=== PATIENT | female | born 1995 | race Caucasian/White ===

== ENCOUNTER 2023-05-05 10:16 | Outpatient (CLI) | payer BC ==
[2023-05-05 12:15] VITALS: BP 141/95; PULSE 94; RESP 16; TEMP 97.2
--- NOTE | 2023-05-10 11:11 | P.MSEPDOC ---
Presenting Problems - Arrival Data Date of Arrival on Unit: 05/05/23 Time of Arrival on Unit: 11:35 Mode of Transport: Ambulatory - Complaint OB-Reason for Admission/Chief Complaint: Rule Out SROM Comment: neg amnisure . unable to check cervix. Medical History - Information : 1 Para: 0 Term: 0 : 0 Abortions: Spontaneous or Elective: 0 Number of Living Children: 0 - Gestational Age Gestational Age by JANICE (wks/days): 38 Weeks and 5 Days Review of Systems - Review of Systems Constitutional: No problems Breast: No problems ENT: No problems Cardiovascular: No problems Respiratory: No problems Gastrointestinal: No problems Genitourinary: No problems Musculoskeletal: No problems Neurological: No problems Skin: No problems Comment: elective c/s for friday. seeing dr singh in office tomorrow Vital Signs - Temperature Temperature: 97.2 F Temperature Source: Temporal Artery Scan - Pulse Apical Pulse Rate: 94 Pulse Assessment Method: Auscultation - Respirations Respiratory Rate: 16 Oxygen Delivery Method: Room Air O2 Sat by Pulse Oximetry: 98 - Blood Pressure Right Arm Blood Pressure: 141/95 Blood Pressure Mean: 110 Blood Pressure Source: Automatic Cuff Medical Screen Scoring - Cervical Exam Membranes: Intact - Uterine Contractions Intensity: Mild Resting: Soft to palpation - Assessment - Baby A Baseline FHR: 140 Heart Rate - NICHD Category: Category I (Normal) Physician Notification - Physician Notified Physician Notified Date: 05/05/23 Physician Notified Time: 11:35 Physician: Bayron Melo Order Received: Yes (home with instructions) Maternal Triage Index - Scheduled/Requesting Priority 5 Scheduled/Requesting Priority 5: Yes Criteria Met for Priority 5: ? srom at 0800. not leaking now. scheduled elective c/s on friday. Disposition - Disposition OB Disposition: Triage, Discharge to home, Written follow up instructions reviewed Discharge Date: 05/05/23 Discharge Time: 11:40 I agree with the RN Medical Screening Exam: Yes Physician's MSE Comment: I have neither seen nor examined the patient. Case reviewed; plan agreed upon as documented in EMR&OBIX.: Yes Diagnosis: RELATED CONDITIONS, UNSPECIFIED, THIRD TRIMESTER
== END 2023-05-05 11:45 | disposition home or self-care (01) ==
LOC: FBPOP 10:16
PROVIDERS: ATTEND Obstetrics & Gynecology
DX: O47.1 False labor at or after 37 completed weeks of gestation (principal); Z3A.38 38 weeks gestation of pregnancy
CPT/HCPCS: 59025; 84112; 99213

== ENCOUNTER 2023-05-06 16:15 | Inpatient (IN) | payer BC ==
[2023-05-06] MEDS ORDERED: TRANEXAMIC 1,000 MG/100ML-NACL 1,000 MG in EMPTY BAG 1 BAG IV PRN (17:00)
[2023-05-06] MEDS ORDERED: OXYTOCIN 30 UNITS/500 ML NS 30 UNIT in SALINE 1 500ML.BAG IV SCH (17:00)
[2023-05-06] MEDS ORDERED: OXYTOCIN 10 UNIT/ML 1 ML VIAL IM PRN (17:00)
[2023-05-06] MEDS ORDERED: miSOPROStoL 200 MCG TAB PO PRN (17:00)
[2023-05-06] MEDS ORDERED: METHYLERGONOVINE 0.2 MG/ML 1 ML AMP IM PRN (17:00)
[2023-05-06] MEDS ORDERED: CARBOPROST TROMETHAMINE 250 MCG/ML 1 ML AMP IM PRN (17:00)
[2023-05-06] MEDS: LACTATED RINGERS 1,000 ML IV SCH (17:15)
[2023-05-06] MEDS: CITRIC ACID-SODIUM CITRATE 15 ML CUP PO ONE (17:29)
[2023-05-06 17:42] LABS: Basophils # (A) 0.1 k/uL (0-0.2); Basophils % (A) 0 %; Eosinophils # (A) 0.1 k/uL (0-0.7); Eosinophils % (A) 1 %; HCT 37.9 % (34.0-46.0); HGB 12.5 gm/dL (11.4-16.0); Lymphocytes # (A) 2.1 k/uL (1.0-4.8); Lymphocytes % (A) 12 %; MCH 28.3 pg (25.0-35.0); MCHC 33.1 g/dL (31.0-37.0); MCV 85.6 fL (80.0-100.0); Mean Platelet Volume 8.2; Monocytes # (A) 1.1 k/uL (0-1.0); Monocytes % (A) 6 %; Neutrophils # (A) 14.2 k/uL (1.3-7.7); Neutrophils % (A) 79 %; Platelet Count 297 k/uL (150-450); RBC 4.43 m/uL (3.80-5.40); RDW 13.9 % (11.5-15.5); WBC 17.9 k/uL (3.8-10.6)
--- NOTE | 2023-05-06 19:00 | P.OP ---
Date of Procedure: 05/06/23 Preoperative Diagnosis: IUP at 38 and 6/7 weeks, labor, intolerance to vaginal exams requesting primary Postoperative Diagnosis: Same plus meconium stained fluid Procedure(s) Performed: Primary low-transverse section Anesthesia: spinal Surgeon: Debra Handley Chili Powder Mixer #1: Geovanna Joiner Estimated Blood Loss (ml): 633 IV fluids (ml): 12 Urine output (ml): 500 (Clear yellow) Pathology: none sent Condition: stable Disposition: observation Indications for Procedure: 27-year-old G1, P0 at 38-6/7 weeks presented to the office for routine visit. Patient states she was noting loss of fluid yesterday was seen in OB triage and had a negative workup. Patient states she continued to have some leakage overnight and started pj once at her appointment this afternoon . Patient states contractions are about 5 minutes apart and getting more uncomfortable. Patient has requested primary secondary to inability to tolerate vaginal exams. This was discussed in detail with patient and all questions are answered. Patient is continuing to request a primary secondary to anxiety about and inability to tolerate vaginal exams Operative Findings: Viable male infant delivered at 1831, weight of 8 pounds 4 ounces, Apgars of 8 and 9 at 1 and 5 minutes respectively meconium stained fluid was appreciated. Description of Procedure: The patient was prepped and draped in the usual fashion after spinal anesthesia was administered by Dr. Hinton. A Pfannenstiel incision was made and extended of the abdominal cavity without difficulty. The bladder peritoneum was elevated and incised and reflected distally. A 2 cm incision was made in the transverse plane of the lower uterine segment to enter the uterus at which time clear fluid was noted. The incision was extended in both directions using the bandage scissors. The head was encountered within the field and delivered up and through the incision where the nose and mouth were thoroughly suctioned. Remainder of the was delivered onto the surgical field where the cord was doubly clamped, cut, and the was passed for resuscitative measures with weight and Apgars as noted above. The placenta was delivered manually, (meconium stained membranes were appreciated) intact, and was grossly normal with a grossly normal three-vessel cord. The uterus was exteriorized and the interior cavity of the uterus swept of any remaining placental and membranous fragments with a laparotomy sponge. The margins of the incision were grasped with Laboy clamps and the incision closed in 2 layers. First layer was a running locking layer of 0 Vicryl from margin to margin followed by a second layer of imbricating 0 Vicryl from margin to margin. Any small points of bleeding were then made hemostatic with the Bovie. Once hemostasis was achieved, the posterior cul-de-sac was suctioned with a guard and the uterine and ovarian findings are as noted above. The uterus was replaced within the abdominal cavity and the gutters swept of any remaining blood fluid or clot. The incision was again reexamined and hemostasis was noted to be excellent. Any small point of bleeding were made hemostatic with the Bovie. Once hemostasis was achieved the parietal peritoneum was loosely reapproximated. The layer of muscles were examined and made hemostatic with the Bovie. Attention was then turned to the fascia which was closed with 2 running stitches of 0 Vicryl proceeding from the lateral margins to the midpoint. The subcutaneous tissues were irrigated, made hemostatic with the Bovie, and reapproximated with a running stitch of 30 vicryl. The skin was reapproximated with 4-0 Vicryl. Estimated blood loss for the case was approximately 633 mL. All sponge instrument and needle counts are correct. There were no complications. The patient tolerated the procedure well and proceeded to the recovery room in stable condition. Both mother and infant are resting comfortably in recovery.
[2023-05-06] MEDS ORDERED: ONDANSETRON 4 MG/2 ML VIAL IVP PRN (19:04)
[2023-05-06] MEDS ORDERED: NALOXONE 0.4 MG/ML 1 ML VIAL IV PRN (19:04)
[2023-05-06] MEDS ORDERED: diphenhydrAMINE 50 MG CAP PO PRN (19:04)
[2023-05-06] MEDS ORDERED: ZOLPIDEM 5 MG TAB PO PRN (19:04)
[2023-05-06] MEDS ORDERED: METOCLOPRAMIDE 5 MG/ML 2 ML VIAL IVP PRN (19:04)
[2023-05-06] MEDS ORDERED: diphenhydrAMINE 50 MG/ML 1 ML VIAL IVP PRN (19:04)
[2023-05-06] MEDS: ACETAMINOPHEN IV (For NPO) 1,000 MG in EMPTY BAG 1 BAG IVPB SCH (21:42)
[2023-05-06] MEDS: SENNOSIDES-DOCUSATE SODIUM 1 EACH TAB PO SCH (21:43)
[2023-05-06] MEDS: diphenhydrAMINE 50 MG/ML 1 ML VIAL IVP PRN (23:50)
[2023-05-07] MEDS: ACETAMINOPHEN TAB 500 MG TAB PO SCH (01:04)
[2023-05-07] MEDS: LACTATED RINGERS 1,000 ML IV SCH (01:04)
[2023-05-07] MEDS: IBUPROFEN 600 MG TAB PO SCH (02:58)
[2023-05-07] MEDS: IBUPROFEN IV 800 MG in SODIUM CHLORIDE 0.9% 250 ML IV SCH (03:31)
--- NOTE | 2023-05-07 07:57 | P.PN ---
Progress Note - Text 05/07/23 640am 28-year-old female status post with spinal Duramorph. Patient seen and evaluated for postop pain control, she has a VAS of 0 with no complaint of nausea vomiting or pruritus. Patient is doing well
[2023-05-07 08:02] LABS: Basophils # (A) 0.1 k/uL (0-0.2); Basophils % (A) 0 %; Eosinophils # (A) 0.1 k/uL (0-0.7); Eosinophils % (A) 1 %; HCT 34.8 % (34.0-46.0); HGB 11.6 gm/dL (11.4-16.0); Lymphocytes # (A) 1.5 k/uL (1.0-4.8); Lymphocytes % (A) 11 %; MCH 28.6 pg (25.0-35.0); MCHC 33.5 g/dL (31.0-37.0); MCV 85.5 fL (80.0-100.0); Mean Platelet Volume 7.9; Monocytes # (A) 0.7 k/uL (0-1.0); Monocytes % (A) 5 %; Neutrophils # (A) 11.2 k/uL (1.3-7.7); Neutrophils % (A) 81 %; Platelet Count 227 k/uL (150-450); RBC 4.07 m/uL (3.80-5.40); WBC 13.8 k/uL (3.8-10.6)
[2023-05-07] MEDS: diphenhydrAMINE 25 MG CAP PO PRN (08:39)
--- NOTE | 2023-05-07 08:39 | P.PNOBGPC ---
Subjective - Subjective Principal diagnosis: Postop day 1 Interval history: Patient is doing well postoperatively. She is ambulating without difficulty, awaiting spontaneous void. She is tolerating a regular diet without nausea or vomiting. She states her pain is well-controlled. She is bottlefeeding Patient reports: Reports appetite normal, Reports voiding normally : doing well, bottle feeding Objective - Vital Signs Latest vital signs: Vital Signs Temp Pulse Resp BP Pulse Ox 05/07/23 03:28 98 F 66 18 137/76 99 05/06/23 23:05 98.2 F 80 16 119/70 05/06/23 21:05 98.5 F 83 16 113/75 05/06/23 20:50 80 16 118/72 05/06/23 20:35 97.1 F L 80 16 117/77 05/06/23 20:20 88 16 118/80 05/06/23 20:05 98.2 F 84 16 109/79 05/06/23 19:50 98.1 F 81 16 118/65 05/06/23 19:35 80 16 114/65 05/06/23 19:20 97.8 F 79 16 108/80 05/06/23 19:05 97.0 F L 80 16 106/58 99 05/06/23 17:00 97.1 F L 78 16 134/78 100 Intake and Output 05/06/23 05/07/23 05/07/23 22:59 06:59 14:59 Intake Total 300 Output Total 1260 900 Balance -960 -900 Intake: Oral 300 Output: Urine 600 900 Uretheral (Jensen) 600 Output, Quantitative 660 Blood Loss Other: Weight 108.862 kg - Exam Extremities: Present: normal, edema Abdomen: Present: normal appearance, soft Incision: Present: normal, dry Uterus: Present: normal, firm - Labs Labs: Abnormal Lab Results - Last 24 Hours (Table) 05/06/23 05/07/23 Range/Units 17:10 07:36 WBC 17.9 H 13.8 H (3.8-10.6) k/uL Neutrophils # 14.2 H 11.2 H (1.3-7.7) k/uL Monocytes # 1.1 H (0-1.0) k/uL Assessment and Plan (1) Term Current Visit: Yes Status: Acute Code(s): Z34.90 - ENCNTR FOR SUPRVSN OF NORMAL , UNSP, UNSP TRIMESTER SNOMED Code(s): 86826738 (2) Thin meconium stained amniotic fluid Current Visit: Yes Status: Acute Code(s): P96.83 - MECONIUM STAINING SNOMED Code(s): 135156437 (3) Status post primary low transverse section Current Visit: Yes Status: Acute Code(s): Z98.891 - HISTORY OF UTERINE SCAR FROM PREVIOUS SURGERY SNOMED Code(s): 074947428 (4) Generalized anxiety disorder Current Visit: Yes Status: Acute Code(s): F41.1 - GENERALIZED ANXIETY DISORDER SNOMED Code(s): 81950472 Plan: 28-year-old G1 now P1 s/p primary for intolerance to vaginal exams, extreme anxiety. Patient underwent primary 6 without difficulty. Patient is doing well this morning. Will encourage increased ambulation. Awaiting spontaneous void. Continue routine postoperative care.
[2023-05-07] MEDS: SERTRALINE 100 MG TAB PO SCH (08:41)
[2023-05-07] MEDS: DIPH,PERTUS(ACELL)TETVAC-LF 0.5 ML VIAL IM ONE (18:28)
[2023-05-07] MEDS: MEASLES-MUMPS-RUBELLA VACC/PF 12,500 UNIT/0.5 ML VIAL SQ ONE (18:31)
--- NOTE | 2023-05-08 12:59 | P.PNOBGPC ---
Subjective - Subjective Principal diagnosis: Postop day 2, primary Interval history: Patient is doing well postoperatively. She is ambulating and voiding without difficulty. Infant remains in the nursery on IV antibiotics. Lochia is minimal. She is bottlefeeding Patient reports: Reports appetite normal, Reports voiding normally, Reports pain well controlled, Reports ambulating normally Sargeant: doing well, bottle feeding Objective - Vital Signs Latest vital signs: Vital Signs Temp Pulse Resp BP Pulse Ox 05/08/23 07:30 97.7 F 71 16 123/77 100 05/08/23 00:00 98.6 F 67 18 120/75 100 05/07/23 16:00 97.8 F 72 16 116/68 96 Intake and Output 05/07/23 05/08/23 05/08/23 22:59 06:59 14:59 Intake Total 600 Output Total 600 Balance 0 Intake: Oral 600 Output: Urine 600 Other: Voiding Method Toilet # Voids 1 - Exam Extremities: Present: normal, edema Abdomen: Present: normal appearance, soft Incision: Present: normal, dry, intact Uterus: Present: normal, firm Assessment and Plan (1) Term Current Visit: Yes Status: Acute Code(s): Z34.90 - ENCNTR FOR SUPRVSN OF NORMAL , UNSP, UNSP TRIMESTER SNOMED Code(s): 72004411 (2) Thin meconium stained amniotic fluid Current Visit: Yes Status: Acute Code(s): P96.83 - MECONIUM STAINING SNOMED Code(s): 516906346 (3) Status post primary low transverse section Current Visit: Yes Status: Acute Code(s): Z98.891 - HISTORY OF UTERINE SCAR FROM PREVIOUS SURGERY SNOMED Code(s): 766405682 (4) Generalized anxiety disorder Current Visit: Yes Status: Acute Code(s): F41.1 - GENERALIZED ANXIETY DISORDER SNOMED Code(s): 96925895 Plan: Patient is doing well postoperatively will continue postoperative care.
[2023-05-09 09:25] VITALS: BP 136/82; PULSE 85; RESP 16; TEMP 97.5
--- NOTE | 2023-05-09 09:47 | P.DS ---
Providers Date of admission: 05/06/23 16:15 Expected date of discharge: 05/09/23 Attending physician: Debra Handley Primary care physician: Stated None - Discharge Diagnosis(es) (1) Term Current Visit: Yes Status: Acute (2) Thin meconium stained amniotic fluid Current Visit: Yes Status: Acute (3) Status post primary low transverse section Current Visit: Yes Status: Acute (4) Generalized anxiety disorder Current Visit: Yes Status: Acute Hospital Course: This is a 28-year-old G1 now P1 that presented to the office for routine visit at 38-6/7 weeks. Patient was noted to be uncomfortable with contractions. Patient states she had loss of fluid yesterday was seen in OB triage with a negative AmniSure. Patient noted continued leakage overnight and presented to her routine visit. Patient was uncomfortable with contractions that were noted to be about 5 minutes apart. Patient was getting more uncomfortable and was instructed to present to OB triage. Patient in addition had requested primary secondary to increasing anxiety and inability to tolerate vaginal exams. This was discussed in detail throughout the with patient and her significant other. Patient continuing to request primary , therefore she was admitted and primary was performed. For full details on the please see the operative report. Patient delivered a viable male at 1831, weight of 8 pounds 4 ounces, Apgars of 8 and 9 at 1 and 5 minutes respectively. Meconium stained fluid was appreciated. Patient's postoperative course has been uneventful. In this postoperative day #3 she is ambulating and voiding without difficulty. She is tolerating a regular diet without nausea or vomiting. She states her pain is well- controlled. Infant is awaiting a blood culture result at 1700 and if negative will be discharged home. Patient Condition at Discharge: Good Plan - Discharge Summary New Discharge Prescriptions: No Action Vit No.179/Iron/Folic [ Tablet] 1 tab PO DAILY Iron/Folate 9/Vit C/D3/B6/B12 [Nufera Tablet] 1 each PO DAILY Sertraline [Zoloft] 100 mg PO DAILY Discharge Medication List Iron/Folate 9/Vit C/D3/B6/B12 [Nufera Tablet] 1 each PO DAILY 05/05/23 [History] Vit No.179/Iron/Folic [ Tablet] 1 tab PO DAILY 05/05/23 [History] Sertraline [Zoloft] 100 mg PO DAILY 05/05/23 [History] Follow up Appointment(s)/Referral(s): Debra Handley DO [Doctor of Osteopathic Medicine] - 2 Weeks Patient Instructions/Handouts: (DC), (GEN) Activity/Diet/Wound Care/Special Instructions: No tub baths or intercourse until 6 weeks postop. Gzri-lox-zekosjh ibuprofen 600 mg or 3 tablets every 6 hours as needed for pain. Patient is to call the office to make a routine postop appointment in 2 weeks. Discharge Disposition: HOME SELF-CARE
[2023-05-09] MEDS: SIMETHICONE 80 MG CHEWABLE PO PRN (10:53)
--- NOTE | 2023-05-13 07:54 | P.HPOB ---
History of Present Illness H&P Date: 05/06/23 Chief Complaint: IUP at 38-6/7 weeks, labor This is a 27-year-old 1 para 0 at 38-6/7 weeks that presents to labor and delivery from the office with noted regular painful contractions. Patient states she believes her water may have broken yesterday she was seen in triage with a negative AmniSure. Patient states she continues to notice some leakage and on exam blood-tinged mucousy fluid was appreciated in the office today. Patient notes good movement. Patient states contractions about every 5 minutes. Patient is uncomfortable with contractions. Patient is intolerant of vaginal exams and struggles with severe anxiety and has requested primary . Patient last ate at 10 AM. care has been essentially uncomplicated blood work notes a blood type of O pos. Review of Systems Constitutional: Denies chills, Denies fatigue, Denies fever Ears, nose, mouth and throat: Denies headache Cardiovascular: Reports leg edema Respiratory: Denies dyspnea Gastrointestinal: Denies nausea, Denies vomiting Genitourinary: Reports Past Medical History History of Any Multi-Drug Resistant Organisms: None Reported Smoking Status: Never smoker Medications and Allergies Home Medications Medication Instructions Recorded Confirmed Type Iron/Folate 9/Vit C/D3/B6/B12 1 each PO DAILY 05/05/23 05/05/23 History [Nufera Tablet] Vit No.179/Iron/Folic 1 tab PO DAILY 05/05/23 05/05/23 History [ Tablet] Sertraline [Zoloft] 100 mg PO DAILY 05/05/23 05/05/23 History Allergies Allergy/AdvReac Type Severity Reaction Status Date / Time No Known Allergies Allergy Verified 05/05/23 11:13 Exam Osteopathic Statement: *. No significant issues noted on an osteopathic structural exam other than those noted in the History and Physical/Consult. Targeted physical exam is performed this date General this is a well-nourished well-developed female in no acute distress, breathing is nonlabored, heart has a regular rate and rhythm, abdomen is gravid, on vaginal exam I am not able to check her cervix secondary to discomfort but feels in vertex presenta tion, pink-tinged mucus fluid is appreciated on my glove after attempted exam. heart tones here on labor and delivery are noted to be category 2 moderate variability is appreciated and she is pj every 3 minutes. Results Result Diagrams: 05/06/23 17:10 Assessment and Plan (1) Term Current Visit: Yes Status: Acute Code(s): Z34.90 - ENCNTR FOR SUPRVSN OF NORMAL , UNSP, UNSP TRIMESTER SNOMED Code(s): 06368936 Plan: 27-year-old G1, P0 at 30-6/7 weeks presents for primary low-transverse section secondary to labor. Patient has requested primary secondary to inability to tolerate vaginal exams. Risks are reviewed with patient and questions are answered. Anesthesia is notified will proceed with primary low- transverse section.
== END 2023-05-09 18:00 | disposition home or self-care (01) | DRG 788 ==
LOC: 4FBP 16:15
PROVIDERS: ADMIT Obstetrics & Gynecology Obstetrics; ATTEND Obstetrics & Gynecology Obstetrics
PROC: 10D00Z1 Extraction of Products of Conception, Low, Open Approach (ICD-10-PCS; principal; 2023-05-06)
DX: O99.344 Other mental disorders complicating childbirth (principal); F41.1 Generalized anxiety disorder; O77.0 Labor and delivery complicated by meconium in amniotic fluid; Z3A.38 38 weeks gestation of pregnancy; Z37.0 Single live birth
CPT/HCPCS: 85025; 86850; 86900; 86901; 90707; 90715